=== PATIENT | female | born 2000 | race Caucasian/White ===

== ENCOUNTER 2018-01-28 16:59 | Emergency (ER) | payer OTHER ==
[2018-01-28] MEDS ORDERED: ALBUTEROL NEB 2.5 MG/3 ML INH STA (18:49)
[2018-01-28] MEDS ORDERED: DEXAMETHASONE 10 MG/ML VIAL PO STA (18:49)
--- NOTE | 2018-01-28 18:52 | ED Physician Documentation ---
History of Present Illness - Stated complaint Stated Complaint: SOA/COUGH/LT EAR PX - Chief complaint Chief Complaint: Resp - History obtained from History obtained from: Patient, Family (father) - History of Present Illness Timing: How many weeks ago (3) Pain level max: 0 Pain level now: 0 Improved by: rest Worsened by: coughing - Additonal information Additional information: 17-year-old female who has had difficulty breathing and coughing for the past 3 weeks. Also left ear pain. Seen by her PCM and placed on an antibiotic. States that she has not improved. Is using an albuterol inhaler, but only 2-3 times per day. Is not using it with a spacer. Review of Systems Constitutional: denies: Fever, Chills Nose: reports: Rhinorrhea / runny nose, Congestion Respiratory: reports: Cough, Wheezing GI: denies: Abdominal Pain, Vomiting, Diarrhea Skin: denies: Rash Musculoskeletal: denies: Neck pain, Back pain Neurologic: denies: Headache PD PAST MEDICAL HISTORY - Past Medical History Past Medical History: No - Past Surgical History Past Surgical History: No - Present Medications Home Medications: Ambulatory Orders Medication Instructions Recorded Confirmed Albuterol Sulf [Ventolin Hfa 1 - 2 puffs INH Q4HR PRN #1 inhaler 01/28/18 Inhaler] Benzonatate [Tessalon Perle] 100 - 200 mg PO TID PRN #30 capsule 01/28/18 Cetirizine HCl/Pseudoephedrine 1 each PO BID PRN #30 tab.er.12h 01/28/18 [Zyrtec-D Tablet] - Allergies Allergies/Adverse Reactions: Allergies Allergy/AdvReac Type Severity Reaction Status Date / Time No Known Drug Allergies Allergy Verified 01/28/18 17:34 - Social History Does the pt smoke?: No Smoking Status: Never smoker Does the pt drink ETOH?: No Does the pt have substance abuse?: No - Immunizations Immunizations are current?: Yes PD ED PE NORMAL - Vitals Vital signs reviewed: Yes - General General: Alert and oriented X 3, No acute distress - HEENT HEENT: PERRL, Ears normal, Moist mucous membranes, Pharynx benign - Neck Neck: Supple, no meningeal sign - Cardiac Cardiac: RRR - Respiratory Respiratory: No respiratory distress, Other (Diminished breath sounds bilaterally) - Abdomen Abdomen: Soft, Non tender, Non distended - Derm Derm: Warm and dry, No rash - Extremities Extremities: No edema - Neuro Neuro: Alert and oriented X 3 - Psych Psych: Normal mood, Normal affect Results - Vitals Vitals: Vital Signs - 24 hr 01/28/18 01/28/18 01/28/18 17:32 19:16 19:45 Temperature 36.5 C Heart Rate 89 94 90 Respiratory 14 16 16 Rate Blood Pressure 123/68 120/70 O2 Saturation 100 100 Oxygen O2 Source Room air - Rads (name of study) Chest x-ray Radiology: Prelim report reviewed, EMP read contemporaneously, See rad report (No acute abnormality) PD MEDICAL DECISION MAKING - ED course Complexity details: reviewed results, re-evaluated patient, considered differential, d/w patient, d/w family ED course: 17-year-old female with a viral upper respiratory infection. Well-appearing, nontoxic. Given a dose of dexamethasone and will increase her use of her albuterol inhaler. Feels better after nebulizer treatment. No pneumonia. No hypoxia. No respiratory distress. Patient counseled regarding signs and symptoms for which I believe and urgent re-evaluation would be necessary. Patient with good understanding of and agreement to plan and is comfortable g oing home at this time This document was made in part using voice recognition software. While efforts are made to proofread this document, sound alike and grammatical errors may occur. Departure - Departure Disposition: 01 Home, Self Care Clinical Impression: Upper respiratory tract infection Qualifiers: URI type: unspecified viral URI Qualified Code(s): J06.9 - Acute upper respiratory infection, unspecified Condition: Good Instructions: ED Viral Syndrome Follow-Up: MESFIN MCINTOSH DO [Primary Care Provider] - Within 1 week Prescriptions: Albuterol Sulf [Ventolin Hfa Inhaler] 1 - 2 puffs INH Q4HR PRN #1 inhaler PRN Reason: Shortness Of Air/Wheezing Benzonatate [Tessalon Perle] 100 - 200 mg PO TID PRN #30 capsule PRN Reason: Cough Cetirizine HCl/Pseudoephedrine [Zyrtec-D Tablet] 1 each PO BID PRN #30 tab.er.12h PRN Reason: Nasal Congestion Comments: Use the medications as prescribed. Return if you worsen. You should be using your inhaler every 3-4 hours. Your x-ray is normal today. Discharge Date/Time: 01/28/18 19:45
[2018-01-28] MEDS ORDERED: CHERRY SYRUP 10 ML UDC PO ONE (19:03)
--- NOTE | 2018-01-28 19:13 | XRAY Report ---
Reason: cough x 3 weeks Procedure Date: 01/28/2018 Accession Number: [id number] / [id number] Procedure: XR - Chest 2 View X-Ray CPT Code: 92269 FULL RESULT: EXAM: CHEST RADIOGRAPHY EXAM DATE: 01/28/2018 06:53 PM. CLINICAL HISTORY: Cough x 3 weeks. COMPARISON: None available. TECHNIQUE: 2 views. FINDINGS: Lungs/Pleura: No consolidation, pleural effusion, or pneumothorax. Mediastinum: Heart and mediastinal contours are unremarkable. Other: There is 11 degrees of dextroconvex curvature of the thoracolumbar spine, as measured from the superior endplate of T6 to the inferior endplate of L3. IMPRESSION: No acute cardiopulmonary findings. RADIA
[2018-01-28 19:46] VITALS: BP 120/70
== END 2018-01-28 19:45 | disposition home or self-care (01) ==
LOC: ED 16:59
DX: J06.9 Acute upper respiratory infection, unspecified (principal)
CPT/HCPCS: 71046; 94640; 94664; 99283; A9270

== ENCOUNTER 2018-03-29 22:42 | Emergency (ER) | payer OTHER ==
[2018-03-29 22:50] VITALS: BP 111/62
--- NOTE | 2018-03-29 22:58 | ED Physician Documentation ---
PD HPI SKIN - Stated complaint Stated Complaint: BODY RASH - Chief complaint Chief Complaint: Wound - History obtained from History obtained from: Patient - History of Present Illness Timing - onset: How many hours ago (1), Today Timing - duration: Hours (1) Timing - details: Abrupt onset, Still present Location: Bodywide Quality / character: Itchy, Discolored (hives) Associated symptoms: No: Fever, Facial swelling, Dyspnea, N/V/D Contributing factors: No: Exposed to medication, Exposed to food, Exposed to soap / lotion, Recent illness Similar symptoms before: No diagnosis (has had hives at times in the past) Review of Systems Constitutional: denies: Fever Nose: denies: Rhinorrhea / runny nose, Congestion Throat: denies: Sore throat Respiratory: denies: Dyspnea, Cough GI: denies: Abdominal Pain, Nausea, Vomiting Skin: reports: Rash PD PAST MEDICAL HISTORY - Past Medical History Cardiovascular: None Respiratory: None Neuro: None Endocrine/Autoimmune: None - Past Surgical History Past Surgical History: No - Present Medications Home Medications: Ambulatory Orders Medication Instructions Recorded Confirmed Albuterol Sulf [Ventolin Hfa 1 - 2 puffs INH Q4HR PRN #1 inhaler 01/28/18 Inhaler] Benzonatate [Tessalon Perle] 100 - 200 mg PO TID PRN #30 capsule 01/28/18 Cetirizine HCl/Pseudoephedrine 1 each PO BID PRN #30 tab.er.12h 01/28/18 [Zyrtec-D Tablet] Cetirizine [ZyrTEC] 10 mg PO DAILY #15 tablet 03/29/18 Dexamethasone [Decadron] 4 mg PO DAILY #5 tablet 03/29/18 Famotidine 20 mg PO DAILY #15 tablet 03/29/18 - Allergies Allergies/Adverse Reactions: Allergies Allergy/AdvReac Type Severity Reaction Status Date / Time No Known Drug Allergies Allergy Verified 03/29/18 22:50 - Social History Does the pt smoke?: No Smoking Status: Never smoker Does the pt drink ETOH?: No Does the pt have substance abuse?: No - Immunizations Immunizations are current?: Yes PD ED PE NORMAL - Vitals Vital signs reviewed: Yes - General General: Alert and oriented X 3, Well developed/nourished, Other (seems uncomfortable and is scratching at various places) - HEENT HEENT: Pharynx benign - Neck Neck: Supple, no meningeal sign, No adenopathy - Cardiac Cardiac: RRR, No murmur - Respiratory Respiratory: Clear bilaterally - Abdomen Abdomen: Soft, Non tender - Derm Derm: Normal color, Warm and dry, Other (blotchy red, slightly raised, nonvesicular, variably sized patched rash c/w hives) - Extremities Extremities: No edema, No calf tenderness / cord - Neuro Neuro: Alert and oriented X 3, No motor deficit, Normal speech Results - Vitals Vitals: Oxygen O2 Source Room air PD MEDICAL DECISION MAKING - ED course Complexity details: considered differential, d/w patient Departure - Departure Disposition: 01 Home, Self Care Clinical Impression: Acute urticaria Condition: Stable Record reviewed to determine appropriate education?: Yes Instructions: ED Allergic Reaction General Other Follow-Up: MESFIN MCINTOSH DO [Primary Care Provider] - Prescriptions: Cetirizine [ZyrTEC] 10 mg PO DAILY #15 tablet Dexamethasone [Decadron] 4 mg PO DAILY #5 tablet Famotidine 20 mg PO DAILY #15 tablet Comments: Cool shower or bath may help with some of the itchiness. Do not have a hot shower as that can actually worsen it. Continue Benadryl every 4-6 hours if needed for itchiness. Use long-acting antihistamine such as cetirizine daily for the next several days to week. Also add antihistamine type II such as famotidine daily for the next week or so. Decadron steroid for the reaction daily for the next 5 days. It is hard to know what the trigger is from this episode. Recheck if it persists beyond a day or 2. Follow-up with your primary care if recurring episodes in the near future without obvious cause. Forms: Activity restrictions Discharge Date/Time: 03/29/18 23:59
[2018-03-29] MEDS ORDERED: diphenhydrAMINE ELIXIR 25 MG/10 ML UDC PO STA (23:14)
[2018-03-29] MEDS ORDERED: FAMOTIDINE 20 MG TABLET PO STA (23:14)
[2018-03-29] MEDS ORDERED: DEXAMETHASONE 10 MG/ML VIAL PO STA (23:14)
[2018-03-29] MEDS ORDERED: CETIRIZINE 10 MG TABLET PO STA (23:14)
== END 2018-03-29 23:59 | disposition home or self-care (01) ==
LOC: ED 22:42
DX: L50.9 Urticaria, unspecified (principal)
CPT/HCPCS: 99283; A9270